=== PATIENT | male | born 1955 | race African-American/Black ===

== ENCOUNTER 2019-01-02 14:05 | Inpatient (IN) | payer OTHER ==
--- NOTE | 2019-01-02 16:36 | HP ---
Admitting History and Physical - Primary Care Physician PCP: Edwina Neff - Admission History of Present Illness: 63-year-old right-handed -[place] man with history of Coronary artery disease Osteoarthritis An anxiety High cholesterol Epilepsy Patient was at his usual status of health and was admitted for elective video EEG Questionable patient sleeps by himself at night questionable nocturnal seizure patient was monitored to [facility] epilepsy monitoring unit for evaluation and treatment patient is on 2 antiseizure medication History Source: Patient Limitations to Obtaining History: No Limitations - Smoking History Smoking history: Never smoked Have you smoked in the past 12 months: No Aproximately how many cigarettes per day: 0 - Alcohol/Substance Use Hx Alcohol Use: No Home Medications - Allergies Allergies/Adverse Reactions: Allergies Allergy/AdvReac Type Severity Reaction Status Date / Time No Known Allergies Allergy Verified 08/01/14 11:15 - Home Medications Home Medications: Ambulatory Orders Amox-Tr/K Cl [Augmentin 875-125mg Tablet -] 1 tab PO BID #14 tablet 08/01/14 Aspirin [ASA -] 81 mg PO DAILY 08/01/14 Atorvastatin Ca [Lipitor] 20 mg PO DAILY 08/01/14 Carbamazepine Xr [Tegretol XR -] 400 mg PO DAILY 08/01/14 Ibuprofen [Motrin -] 800 mg PO TID #30 tablet 08/01/14 Lacosamide [Vimpat -] 50 mg PO DAILY 08/01/14 Tamsulosin HCl 0.4 mg PO DAILY 08/01/14 Valsartan [Diovan] 40 mg PO DAILY 08/01/14 Family Disease History - Family Disease History Family History: Denies Review of Systems - Review of Systems Constitutional: reports: No Symptoms Eyes: reports: No Symptoms HENT: reports: No Symptoms (S) Neurological: reports: No Symptoms Physical Examination Constitutional: Yes: Well Nourished Eyes: Yes: WNL HENT: Yes: WNL Neurological: Yes: Alert, Oriented, Babinski negative, Cran Nerves II-XII Intact ...Motor Strength: WNL Problem List - Problems (1) Epilepsy Assessment/Plan: complex partial seizure with focal onset Do antiseizure medication stable Rule out nocturnal seizure 1. Admit to the epilepsy monitoring monitoring unit 2. Seizure precautions. 3. Continue Tegretol the same. 4. Ativan when necessary seizure. 5. Expected length of stay 72 hours. Code(s): G40.909 - EPILEPSY, UNSP, NOT INTRACTABLE, WITHOUT STATUS EPILEPTICUS
[2019-01-02 18:12] VITALS: BMI 79.6
[2019-01-02 19:25] LABS: HEMATOCRIT 40.3 % (35.4-49); HEMOGLOBIN 13.5 GM/dL (11.7-16.9); MCH 30.3 pg (25.7-33.7); MCHC 33.5 g/dl (32.0-35.9); MEAN CELL VOLUME 90.4 fl (80-96); MEAN PLT VOLUME 8.8 fl (7.5-11.1); PLATELET COUNT 233 K/MM3 (134-434); RBC 4.46 M/mm3 (4.00-5.60); RDW 15.5 % (11.9-15.9); WHITE BLOOD COUNT 7.7 K/mm3 (4.0-10.0)
[2019-01-02 19:29] LABS: ALBUMIN 3.6 g/dl (3.4-5.0); ALK PHOS 175 U/L (45-117); ANION GAP 12 MMOL/L (8-16); BILIRUBIN,DIRECT 0.1 mg/dL (0.0-0.2); BILIRUBIN,TOTAL 0.1 mg/dL (0.2-1); BLOOD UREA NITROGEN 34 mg/dL (7-18); CALCIUM 8.2 mg/dL (8.5-10.1); CHLORIDE 109 mmol/L (98-107); CO2 21 mmol/L (21-32); GLUCOSE,RANDOM 127 mg/dL (74-106); POTASSIUM 3.6 mmol/L (3.5-5.1); SGOT/AST 19 U/L (15-37); SGPT/ALT 32 U/L (13-61); SODIUM 141 mmol/L (136-145); TOT PROT 7.4 g/dl (6.4-8.2)
[2019-01-02] MEDS: carBAMazepine XR 200 MG TAB.ER.12H PO SCH (23:48)
[2019-01-02] MEDS: levETIRAcetam 500 MG TABLET (FP) PO SCH (23:48)
[2019-01-03] MEDS ORDERED: PT OWN MED DRAWER 7, Y5N ONE ×3 (10:37→21:01)
[2019-01-03] MEDS: NEBIVOLOL 10 MG TABLET (FP) PO SCH (10:39)
[2019-01-03] MEDS: carBAMazepine XR 200 MG TAB.ER.12H PO SCH ×2 (10:39→21:12)
[2019-01-03] MEDS: HYDROCHLOROTHIAZIDE 25 MG TABLET (FP) PO SCH (10:39)
[2019-01-03] MEDS: levETIRAcetam 500 MG TABLET (FP) PO SCH ×2 (10:39→21:12)
--- NOTE | 2019-01-03 12:51 | PN ---
Progress Note, Physician History of Present Illness: events noted chart reviwed Reviewed the last 12 hours of the video EEG No evidence of electrical seizure Patient did not press the event button No report of any seizure-like activity by the registered nurse Patient is on 3 antiseizure medication - Current Medication List Current Medications: Active Medications Carbamazepine (Tegretol Xr -) 200 mg PO BID [facility] Last Admin: 01/03/19 10:39 Dose: 200 mg Hydrochlorothiazide (Hctz -) 25 mg PO DAILY [facility] Last Admin: 01/03/19 10:39 Dose: 25 mg Levetiracetam (Keppra -) 1,000 mg PO BID [facility] Last Admin: 01/03/19 10:39 Dose: 1,000 mg Nebivolol (Bystolic -) 10 mg PO DAILY [facility] Last Admin: 01/03/19 10:39 Dose: 10 mg - Objective Vital Signs: Vital Signs Temperature 97.3 F L 01/03/19 10:00 Pulse Rate 68 01/03/19 10:00 Respiratory Rate 20 01/03/19 10:00 Blood Pressure 146/90 01/03/19 10:00 O2 Sat by Pulse Oximetry (%) 95 01/03/19 09:00 Constitutional: Yes: Well Nourished Eyes: Yes: WNL Neurological: Yes: Alert, Oriented, Babinski negative ...Motor Strength: WNL Labs: CBC, BMP 01/02/19 17:30 01/02/19 17:30 Problem List - Problems (1) Epilepsy Assessment/Plan: continue video EEG monitoring. 2. Ativan when necessary seizure. 3. Adjust the medication according to the video EEG. 4. Rule out nocturnal seizure Code(s): G40.909 - EPILEPSY, UNSP, NOT INTRACTABLE, WITHOUT STATUS EPILEPTICUS
[2019-01-04] MEDS ORDERED: PT OWN MED DRAWER 7, Y5N ONE ×2 (10:14→21:09)
[2019-01-04] MEDS: HYDROCHLOROTHIAZIDE 25 MG TABLET (FP) PO SCH (10:16)
[2019-01-04] MEDS: carBAMazepine XR 200 MG TAB.ER.12H PO SCH ×2 (10:17→21:11)
[2019-01-04] MEDS: NEBIVOLOL 10 MG TABLET (FP) PO SCH (10:17)
[2019-01-04] MEDS: levETIRAcetam 500 MG TABLET (FP) PO SCH ×2 (10:17→21:11)
--- NOTE | 2019-01-04 17:59 | EKG ---
Test Reason : Blood Pressure : / mmHG Vent. Rate : 077 BPM Atrial Rate : 077 BPM P-R Int : 278 ms QRS Dur : 088 ms QT Int : 394 ms P-R-T Axes : 057 040 036 degrees QTc Int : 445 ms SINUS RHYTHM WITH 1ST DEGREE A-V BLOCK OTHERWISE NORMAL ECG WHEN COMPARED WITH ECG OF 21-MAY-2011 19:23, NO SIGNIFICANT CHANGE WAS FOUND Confirmed by KALEIGH JIMENEZ MD ([id number]) on 01/04/2019 5:59:13 PM Referred By: ALFRED Confirmed By:KALEIGH JIMENEZ MD
--- NOTE | 2019-01-04 19:52 | PN ---
Progress Note, Physician History of Present Illness: events noted in chart reviewed No seizure activity Video EEG monitoring overnight was reviewed No detectable electrical seizure Patient is still on the 3 antiseizure medication tolerating the medication very well - Current Medication List Current Medications: Active Medications Carbamazepine (Tegretol Xr -) 200 mg PO BID [facility] Last Admin: 01/04/19 10:17 Dose: 200 mg Hydrochlorothiazide (Hctz -) 25 mg PO DAILY [facility] Last Admin: 01/04/19 10:16 Dose: 25 mg Levetiracetam (Keppra -) 1,000 mg PO BID [facility] Last Admin: 01/04/19 10:17 Dose: 1,000 mg Nebivolol (Bystolic -) 10 mg PO DAILY [facility] Last Admin: 01/04/19 10:17 Dose: 10 mg - Objective Vital Signs: Vital Signs Temperature 98.1 F 01/04/19 15:22 Pulse Rate 68 01/04/19 15:22 Respiratory Rate 18 01/04/19 15:22 Blood Pressure 138/89 01/04/19 15:22 O2 Sat by Pulse Oximetry (%) 95 01/04/19 08:09 Constitutional: Yes: Well Nourished Eyes: Yes: WNL Neurological: Yes: Alert, Oriented, Cran Nerves II-XII Intact Labs: CBC, BMP 01/02/19 17:30 01/02/19 17:30 Problem List - Problems (1) Epilepsy Assessment/Plan: continue one more [facility] Planning discharge tomorrow morning Code(s): G40.909 - EPILEPSY, UNSP, NOT INTRACTABLE, WITHOUT STATUS EPILEPTICUS
[2019-01-05] MEDS ORDERED: PT OWN MED DRAWER 7, Y5N ONE (09:18)
[2019-01-05] MEDS: levETIRAcetam 500 MG TABLET (FP) PO SCH (09:21)
[2019-01-05] MEDS: NEBIVOLOL 10 MG TABLET (FP) PO SCH (09:21)
[2019-01-05] MEDS: HYDROCHLOROTHIAZIDE 25 MG TABLET (FP) PO SCH (09:21)
[2019-01-05] MEDS: carBAMazepine XR 200 MG TAB.ER.12H PO SCH (09:22)
[2019-01-05 19:07] VITALS: BP 147/85; PULSE 69; TEMP 97.4
== END 2019-01-05 20:35 | disposition home or self-care (01) | DRG 101 ==
LOC: EDSTATUS 14:05 → J4S 15:53
PROVIDERS: ADMIT Psychiatry & Neurology Neurology; ATTEND Psychiatry & Neurology Neurology
DX: G40.909 Epilepsy, unspecified, not intractable, without status epilepticus (principal); I25.10 Atherosclerotic heart disease of native coronary artery without angina pectoris; E78.5 Hyperlipidemia, unspecified; F41.9 Anxiety disorder, unspecified; M19.90 Unspecified osteoarthritis, unspecified site; E78.00 Pure hypercholesterolemia, unspecified
CPT/HCPCS: 36415; 80048; 80076; 82962; 85027; 93005; 93010; 95951